=== PATIENT | male | born 1985 | race Caucasian/White ===

== ENCOUNTER 2022-08-17 18:43 | Inpatient (IN) | payer MEDICAID, SELFPAY ==
[2022-08-17 19:02] VITALS: BMI 25.0
[2022-08-17] MEDS: trazodone 50 mg Tablet PO (20:03)
[2022-08-17] MEDS: nicotine 4 mg lozenge MUCOUS MEM (20:03)
[2022-08-17] MEDS: hyDROXYzine 25 mg Capsule 50 MG PO (20:03)
[2022-08-17 22:00] VITALS: BP 168/96; PULSE 103; RESP 17; TEMP 36.7; O2SAT 97
[2022-08-18 06:00] VITALS: BP 168/96; PULSE 103; RESP 17; TEMP 36.7; O2SAT 97
[2022-08-18 06:37] VITALS: BP 129/84; PULSE 97; RESP 17; TEMP 36.6; O2SAT 93
[2022-08-18] MEDS: nicotine 4 mg lozenge MUCOUS MEM ×5 (07:57→18:42)
--- NOTE | 2022-08-18 08:24 | W.PM.NPUH&PS ---
Providers/Chief Complaint Admitting Physician: Foreign Maradiaga MD Chief Complaint: depression HPI NPU History of Present Illness Ravinder Calloway is a 36 year old male who presented to [facility] with reports of a suicide attempt. Poison control was called secondary to an overdose on Seroquel and Suboxone. He reportedly drank alcohol during this episode after having a fight with his girlfriend but then backtracked about it being a suicide attempt reporting he wanted to just forget about his life. He was placed on a 96-hour hold and was then transferred to [facility] and admitted to the neuropsychiatric unit for definitive treatment of those issues. He presents today reporting that what I recounted from the outside hospital was true. That he has a history of going to [place] as well as another provider for his medications. He continued to deny his presentation being a suicide attempt but does endorse having suicide attempts in the past. He concurs that this was related to a conflict with his girlfriend. And he endorsed wanting to get things in his life back under control. He reports that he smokes cigarettes probably a pack a day, has alcohol use regularly endorses marijuana as well as methamphetamine use he endorses having some outpatient services for his addiction but it is unclear whether he has had inpatient services. His UDS at the outside hospital was positive for amphetamines benzodiazepines and his alcohol level was nondetectable. He was unclear whether he wanted to initiate medication reporting that he is thinking that may be this was just an impulsive act but he reports he would consider initiation of an antidepressant after we discussed the risks, benefits and alternatives he understood and agreed to proceed as is documented in this note. He endorses having had a DUI as well as speeding and driving while license suspended which are currently not adjudicated. He lives with a significant other and does not feel that that relationship is over. Meds NPU Home Medications Medication Instructions Recorded Confirmed Last Taken Type quetiapine 50 mg tablet 50 mg PO BEDTIME 08/17/22 08/18/22 07/16/22 History Allergies Allergy/AdvReac Type Severity Reaction Status Date / Time No Known Allergies Allergy Verified 08/17/22 19:06 Mental Status Exam MSE Comments: This is a well-nourished, well-developed white male in hospital scrubs with limited grooming and adequate eye contact. No abnormal movements except for psychomotor retardation. Cooperative with exam in mild distress. Speech was decreased rate and volume. Mood described as better than yesterday, affect slightly subdued. Thought process organized. Thought content: Patient denied suicidal or homicidal ideation, there were no delusions reported or noted, he denied auditory or visual hallucinations. Attention and concentration were intact and memory appeared mostly reliable but none were formally tested. He is alert and oriented x3. Insight and judgment impaired, impulse control impaired. Vitals/I&O/Wt Last Vital Signs Temp 97.9 F 08/18/22 06:37 Pulse 97 08/18/22 06:37 Resp 17 08/18/22 06:37 BP 129/84 08/18/22 06:37 Pulse Ox 93 08/18/22 06:37 O2 Del Method 08/18/22 06:37 Weight last 48 hrs Weight 83.915 kg A&P Assessment and plan (1) Depression: (2) Anxiety: (3) Methamphetamine use disorder, severe: (4) Alcohol use: (5) Partner relational problem: (6) Suicide attempt: Plan This is a 36-year-old white male with a long history of addiction and mental health challenges who presents after a fight with his girlfriend after which he took an overdose of his medications but denies it being a suicide attempt. 1. Continue current medication. We will consider whether to initiate an antidepressant with his approval. 2. Continue every 15 minute checks for safety. 3. Encourage individual, group and milieu therapies. 4. Encourage sober living treatment after discharge at the highest level of care to which he is willing to commit. Involuntary Hold Information 96 Hour Hold: 96 Hour Involuntary Admission: No Attestations NPU Medical Necessity Statement*: Inpatient psychiatric hospitalization is medically necessary and the clinically appropriate intervention at this time. We will monitor/initiate medications and make changes as indicated. He will be in the hospital for over 2 midnights. Likely length of stay 3 to 5 days. Coding Level of Care Code Acute Applications Trainer for [facility] Diagnoses Depression F32.A Anxiety F41.9 Methamphetamine use disorder, severe F15.20 Alcohol use Z78.9 Partner relational problem Z63.0 Suicide attempt T14.91XA
[2022-08-18] MEDS: hyDROXYzine 25 mg Capsule 50 MG PO ×2 (11:02→20:16)
--- NOTE | 2022-08-18 11:18 | PC.NURSE ---
Patient denies ah/vh and si/hi. Patient stated he overdosed on his seroquel and suboxone before being admitted and remembered being with his girlfriend before box spinner showed up. He states when he woke up he was in the hospital and didn't remember what had happened. He came up to the nurses' station to obtain something for anxiety immediately before assessment and hydroxyzine was administered. Patient was visibly bouncing his feet and legs throughout assessment. Patient is calm and cooperative.
[2022-08-18 14:00] VITALS: BP 129/85; PULSE 95; RESP 16; TEMP 36.7; O2SAT 97
[2022-08-18] MEDS: nicotine 2 mg Gum BUCCAL (14:13)
[2022-08-18] MEDS: OLANZapine 5 mg ODT PO (17:25)
[2022-08-18] MEDS: trazodone 50 mg Tablet PO (20:16)
[2022-08-18 22:00] VITALS: BP 129/85; PULSE 95; RESP 16; TEMP 36.7; O2SAT 97
[2022-08-18 22:43] VITALS: BP 130/76; PULSE 103; RESP 18; TEMP 36.8; O2SAT 96
[2022-08-19 06:00] VITALS: BP 119/75; PULSE 98; RESP 17; TEMP 36.8; O2SAT 97
[2022-08-19] MEDS: nicotine 4 mg lozenge MUCOUS MEM ×4 (08:25→18:17)
--- NOTE | 2022-08-19 09:00 | PC.NURSE ---
Patient denies si/hi and ah/vh. Patient calm and cooperative and not bouncing his legs and feet during assessment like he was yesterday. Appears much less anxious and states he mainly gets anxious when he's around a lot of people.
[2022-08-19] MEDS: hyDROXYzine 25 mg Capsule 50 MG PO (09:37)
--- NOTE | 2022-08-19 12:08 | P.NPUPN_ITS ---
Subjective NPU Subjective: Patient presented today reporting that he had been taking the Seroquel and that it had been helping but that the naltrexone had not really assisted with his cravings or anything else. He reports he did have a conflict with his significant other and that they currently are not together. He reports that he did relapse but had been doing better with the methamphetamine. He reports a plan to return to his aunt's house but did acknowledge that his aunt lives essentially next door to his significant other and down the street from the person that is about to become his ex-. We discussed medications which she is not sure if he wants to try again but also monitoring him for safety given the stress that his residence will likely portend. Mental Status Exam MSE Comments: This is a well-nourished, well-developed white male in hospital scrubs with limited grooming and adequate eye contact. No abnormal movements except for psychomotor retardation. Cooperative with exam in mild distress. Speech was decreased rate and volume. Mood described as doing better, affect slightly subdued. Thought process organized. Thought content: Patient denied suicidal or homicidal ideation, there were no delusions reported or noted, he denied auditory or visual hallucinations. Attention and concentration were intact and memory appeared mostly reliable but none were formally tested. He is alert and oriented x3. Insight and judgment impaired, impulse control impaired. Vitals/I&O/Wt Last Vital Signs Temp 97.8 F 08/19/22 14:00 Pulse 111 H 08/19/22 14:00 Resp 16 08/19/22 14:00 BP 120/77 08/19/22 14:00 Pulse Ox 99 08/19/22 14:00 O2 Del Method 08/19/22 14:00 A&P Assessment and plan (1) Depression: (2) Anxiety: (3) Methamphetamine use disorder, severe: (4) Alcohol use: (5) Partner relational problem: (6) Suicide attempt: Plan This is a 36-year-old white male with a long history of addiction and mental health challenges who presents after a fight with his girlfriend after which he took an overdose of his medications but denies it being a suicide attempt. 1. Continue current medication. We will consider whether to initiate an antidepressant with his approval. 2. Continue every 15 minute checks for safety. 3. Encourage individual, group and milieu therapies. 4. Encourage sober living treatment after discharge at the highest level of care to which he is willing to commit. Involuntary Hold Information 96 Hour Hold: 96 Hour Involuntary Admission: No Attestations NPU Medical Necessity Statement*: Inpatient psychiatric hospitalization is medically necessary and the clinically appropriate intervention at this time. We will monitor/initiate medications and make changes as indicated. Likely length of stay 2-4 days. Coding Level of Care Code Acute Product Manager Financial Services for [facility] Fwd Diagnoses Depression F32.A Anxiety F41.9 Methamphetamine use disorder, severe F15.20 Alcohol use Z78.9 Partner relational problem Z63.0 Suicide attempt T14.91XA
[2022-08-19 14:00] VITALS: BP 120/77; PULSE 111; RESP 16; TEMP 36.6; O2SAT 99
[2022-08-19 20:14] VITALS: BP 129/86; PULSE 101; RESP 18; TEMP 36.7; O2SAT 98
[2022-08-19] MEDS: trazodone 50 mg Tablet PO (22:10)
[2022-08-20 06:00] VITALS: BP 120/79; PULSE 90; RESP 18; TEMP 36.7; O2SAT 98
[2022-08-20] MEDS: nicotine 4 mg lozenge MUCOUS MEM ×5 (07:10→18:38)
--- NOTE | 2022-08-20 08:16 | W.PM.NPUPNS ---
Subjective NPU Subjective: Patient returns today reporting that he felt the stepdaughter and she was tearful saying she wants that see him back around. Reports this has inspired him to get himself together and go back to the area. He reported that his anxiety is the greatest challenge that he has. We discussed risks, benefits and alternatives initiated BuSpar 15 mg p.o. twice daily and he understood and agreed to proceed as documented in this note. Mental Status Exam MSE Comments: This is a well-nourished, well-developed white male in hospital scrubs with limited grooming and adequate eye contact. No abnormal movements except for psychomotor retardation. Cooperative with exam in mild distress. Speech was more normal rate and volume. Mood described as anxious, affect congruent. Thought process organized. Thought content: Patient denied suicidal or homicidal ideation, there were no delusions reported or noted, he denied auditory or visual hallucinations. Attention and concentration were intact and memory appeared mostly reliable but none were formally tested. He is alert and oriented x3. Insight and judgment impaired, impulse control impaired. Vitals/I&O/Wt Last Vital Signs Temp 98.0 F 08/20/22 06:00 Pulse 90 08/20/22 06:00 Resp 18 08/20/22 06:00 BP 120/79 08/20/22 06:00 Pulse Ox 98 08/20/22 06:00 O2 Del Method 08/19/22 14:00 A&P Assessment and plan (1) Depression: (2) Anxiety: (3) Methamphetamine use disorder, severe: (4) Alcohol use: (5) Partner relational problem: (6) Suicide attempt: Plan This is a 36-year-old white male with a long history of addiction and mental health challenges who presents after a fight with his girlfriend after which he took an overdose of his medications but denies it being a suicide attempt. 1. Continue current medication. Initiate BuSpar 15 mg p.o. twice daily. 2. Continue every 15 minute checks for safety. 3. Encourage individual, group and milieu therapies. 4. Encourage sober living treatment after discharge at the highest level of care to which he is willing to commit. Involuntary Hold Information 96 Hour Hold: 96 Hour Involuntary Admission: No Attestations NPU Medical Necessity Statement*: Inpatient psychiatric hospitalization is medically necessary and the clinically appropriate intervention at this time. We will monitor/initiate medications and make changes as indicated. Likely length of stay 2-4 days. Coding Level of Care Code Acute Day Habilitation Specialist for [facility] Fwd Diagnoses Depression F32.A Anxiety F41.9 Methamphetamine use disorder, severe F15.20 Alcohol use Z78.9 Partner relational problem Z63.0 Suicide attempt T14.91XA
[2022-08-20] MEDS: hyDROXYzine 25 mg Capsule 50 MG PO (09:26)
[2022-08-20] MEDS: BuSPIRONE 10 mg Tablet 15 MG PO ×2 (11:23→18:18)
[2022-08-20 14:00] VITALS: BP 116/70; PULSE 105; RESP 18; TEMP 36.7; O2SAT 97
[2022-08-20] MEDS: trazodone 50 mg Tablet PO (19:54)
[2022-08-20 20:38] VITALS: BP 155/77; PULSE 74; RESP 18; TEMP 37.1; O2SAT 98
[2022-08-21 06:00] VITALS: BP 131/87; PULSE 92; RESP 18; TEMP 36.7; O2SAT 98; BMI 25.5
[2022-08-21] MEDS: nicotine 4 mg lozenge MUCOUS MEM ×2 (07:23→09:44)
[2022-08-21] MEDS: BuSPIRONE 10 mg Tablet 15 MG PO ×2 (08:47→19:37)
[2022-08-21] MEDS: nicotine 2 mg Gum BUCCAL ×3 (12:39→17:46)
[2022-08-21 14:00] VITALS: BP 122/71; PULSE 116; RESP 18; O2SAT 95
--- NOTE | 2022-08-21 16:00 | W.PM.NPUPNS ---
Subjective NPU Subjective: Patient presents today reporting that things are going better. He reports that he has been in contact with his aunt and she is telling him that he would be welcome to stay there. He reported doing well with the BuSpar and denied any major issues at this point. He denied any thoughts to harm self. Endorsed being able to contract for safety. We discussed the possibility of discharge tomorrow. Mental Status Exam MSE Comments: This is a well-nourished, well-developed white male in hospital scrubs with limited grooming and adequate eye contact. No abnormal movements except for psychomotor retardation. Cooperative with exam in no acute distress. Speech was more normal rate and volume. Mood described as better, affect congruent. Thought process organized. Thought content: Patient denied suicidal or homicidal ideation, there were no delusions reported or noted, he denied auditory or visual hallucinations. Attention and concentration were intact and memory appeared mostly reliable but none were formally tested. He is alert and oriented x3. Insight and judgment improving, impulse control limited but improving. Vitals/I&O/Wt Last Vital Signs Temp 98.2 F 08/21/22 20:05 Pulse 89 08/21/22 20:05 Resp 18 08/21/22 20:05 BP 160/92 08/21/22 20:05 Pulse Ox 99 08/21/22 20:05 O2 Del Method 08/21/22 06:00 Weight last 48 hrs Weight 85.502 kg Weight 85.502 kg A&P Assessment and plan (1) Depression: (2) Anxiety: (3) Methamphetamine use disorder, severe: (4) Alcohol use: (5) Partner relational problem: (6) Suicide attempt: Plan This is a 36-year-old white male with a long history of addiction and mental health challenges who presents after a fight with his girlfriend after which he took an overdose of his medications but denies it being a suicide attempt. 1. Continue current medication. Initiated BuSpar 15 mg p.o. twice daily. 2. Continue every 15 minute checks for safety. 3. Encourage individual, group and milieu therapies. 4. Encourage sober living treatment after discharge at the highest level of care to which he is willing to commit. Involuntary Hold Information 96 Hour Hold: 96 Hour Involuntary Admission: No Attestations NPU Medical Necessity Statement*: Inpatient psychiatric hospitalization is medically necessary and the clinically appropriate intervention at this time. We will monitor/initiate medications and make changes as indicated. Likely length of stay 1-3 days. Coding Level of Care Code Acute Information Systems Director for g Fwd Diagnoses Depression F32.A Anxiety F41.9 Methamphetamine use disorder, severe F15.20 Alcohol use Z78.9 Partner relational problem Z63.0 Suicide attempt T14.91XA
[2022-08-21] MEDS: trazodone 50 mg Tablet PO (19:37)
[2022-08-21 20:05] VITALS: BP 160/92; PULSE 89; RESP 18; TEMP 36.8; O2SAT 99
[2022-08-22 06:00] VITALS: BP 112/74; PULSE 76; RESP 18; TEMP 36.8; O2SAT 99
[2022-08-22] MEDS: nicotine 2 mg Gum BUCCAL ×3 (07:14→12:41)
[2022-08-22] MEDS: BuSPIRONE 10 mg Tablet 15 MG PO (07:14)
--- NOTE | 2022-08-22 11:10 | W.PM.NPUDCS ---
Diagnoses at Discharge Discharge Diagnosis (1) Depression: Status: Acute (2) Anxiety: Status: Acute (3) Methamphetamine use disorder, severe: Status: Acute (4) Alcohol use: Status: Acute (5) Partner relational problem: Status: Acute (6) Suicide attempt: Status: Resolved Reason for Visit Reason for Visit: depression Brief History: History of Present Illness Ravinder Calloway is a 36 year old male who presented to [facility] with reports of a suicide attempt.? Poison control was called secondary to an overdose on Seroquel and Suboxone.? He reportedly drank alcohol during this episode after having a fight with his girlfriend but then backtracked about it being a suicide attempt reporting he wanted to just forget about his life. ? He was placed on a 96-hour hold and was then transferred to [facility] and admitted to the neuropsychiatric unit for definitive treatment of those issues.? He presents today reporting that what I recounted from the outside hospital was true.? That he has a history of going to [place] as well as another provider for his medications.? He continued to deny his presentation being a suicide attempt but does endorse having suicide attempts in the past.? He concurs that this was related to a conflict with his girlfriend.? And he endorsed wanting to get things in his life back under control.? He reports that he smokes cigarettes probably a pack a day, has alcohol use regularly endorses marijuana as well as methamphetamine use he endorses having some outpatient services for his addiction but it is unclear whether he has had inpatient services.? His UDS at the outside hospital was positive for amphetamines benzodiazepines and his alcohol level was nondetectable.? He was unclear whether he wanted to initiate medication reporting that he is thinking that may be this was just an impulsive act but he reports he would consider initiation of an antidepressant after we discussed the risks, benefits and alternatives he understood and agreed to proceed as is documented in this note.? He endorses having had a DUI as well as speeding and driving while license suspended which are currently not adjudicated.? He lives with a significant other and does not feel that that relationship is over. Hospital Course Hospital Course He slowly acclimated to the individual, group and milieu therapies provided.? He endorsed that the anxiety was getting the best of him and we started him on BuSpar 15 mg p.o. twice daily as well as Vistaril and trazodone as needed. He was able to contract for safety outside of the hospital prior to discharge and showed significant improvement.? At the outside hospital, patient had routine laboratory studies which were within normal limits except for few outliers.? Additionally there was a general medical evaluation which was also within normal limits and revealed no new acute processes. Discharge Summary: At the time of discharge, he denied psychosis or lethality.? Mood and anxiety were well managed.? Patient endorsed a plan to avoid all drugs of abuse and follow-up with the aftercare recommendations of the treatment team.? Patient was evaluated and deemed to be absent credible lethality, and had achieved the maximum benefit from an inpatient hospitalization, so was discharged. Involuntary Hold Information 96 Hour Hold: 96 Hour Involuntary Admission: No Mental Status Exam MSE Comments: This is a well-nourished, well-developed white male in hospital scrubs with limited grooming and adequate eye contact. No abnormal movements except for psychomotor retardation. Cooperative with exam in no acute distress. Speech was more normal rate and volume. Mood described as better, affect congruent. Thought process organized. Thought content: Patient denied suicidal or homicidal ideation, there were no delusions reported or noted, he denied auditory or visual hallucinations. Attention and concentration were intact and memory appeared mostly reliable but none were formally tested. He is alert and oriented x3. Insight and judgment improving, impulse control limited but improving. Discharge Data Vitals: Last Vital Signs Temp 98.3 F 08/22/22 06:00 Pulse 76 08/22/22 06:00 Resp 18 08/22/22 06:00 BP 112/74 08/22/22 06:00 Pulse Ox 99 08/22/22 06:00 O2 Del Method 08/21/22 06:00 Discharge Plan Discharge Patient Disposition: Home Condition: Stable Prescriptions: New trazodone 50 mg Tablet 50 mg PO BEDTIME PRN (Reason: sleep) 30 Days Qty: 30 1RF hydroxyzine pamoate 25 mg Capsule 50 mg PO Q6H PRN (Reason: Anxiety) 30 Days Qty: 120 1RF buspirone 15 mg tablet 15 mg PO 0900,2100 30 Days Qty: 60 1RF Discontinued quetiapine 50 mg tablet 50 mg PO BEDTIME Discharge Orders: Discharge Order (Routine); Ordered 08/22/22 Ordered By: Foreign Maradiaga [facility] 7:15 am (Arrive by 7:15am for 7:45am appointment) Discharge Diet: Regular Discharge Activity: Resume usual activity Patient Instructions: Depression, Buspirone (By mouth), Methamphetamine Abuse, Abuse of Alcohol (DC), Opioid Safety Discharge Attestations NPU Time Spent in Discharge Care*: less than 30 min Specific Discharge Activities: Specific discharge activities: educating patient, discussing with correctional case records supervisor/social workers/dc planners, documenting/other paperwork and evaluating patient/reviewing data Coding Level of Care Code Acute Chg FW DC note Diagnoses Depression F32.A Anxiety F41.9 Methamphetamine use disorder, severe F15.20 Alcohol use Z78.9 Partner relational problem Z63.0 Suicide attempt T14.91XA
[2022-08-22 11:12] VITALS: BP 112/74; PULSE 76; RESP 18; TEMP 36.8; O2SAT 99
[2022-08-22] MEDS: hyDROXYzine 25 mg Capsule 50 MG PO (13:01)
[2022-08-22 14:00] VITALS: BP 122/80; PULSE 97; RESP 16; TEMP 36.6; O2SAT 98
== END 2022-08-22 14:50 | disposition home or self-care (01) | DRG 881 ==
PROVIDERS: Admitting Provider Psychiatry & Neurology Psychiatry; Visit Provider Psychiatry & Neurology Psychiatry
DX: F32.9 Major depressive disorder, single episode, unspecified (principal); R45.851 Suicidal ideations; F15.20 Other stimulant dependence, uncomplicated; F41.9 Anxiety disorder, unspecified; T43.592A Poisoning by other antipsychotics and neuroleptics, intentional self-harm, initial encounter; T40.492A Poisoning by other synthetic narcotics, intentional self-harm, initial encounter; F10.90 Alcohol use, unspecified, uncomplicated; F17.210 Nicotine dependence, cigarettes, uncomplicated; Z63.0 Problems in relationship with spouse or partner
CPT/HCPCS: 97150; 97165